=== PATIENT | male | born 1960 ===

== ENCOUNTER 2021-02-04 13:41 | Inpatient (IN) | payer SELFPAY ==
[~2021-02-04 13:41] MED LIST: Iopamidol 370 76% 100 ML VIAL ONE; Iopamidol 370 76% 50 ML VIAL FS ONE
[2021-02-04] MEDS ORDERED: Morphine 4 MG/ML VIAL ONE (13:45)
[2021-02-04] MEDS ORDERED: Ondansetron PF 4 MG/2 ML Vial ONE (13:45)
[2021-02-04 14:02] LABS: #Basophils 0.1 thou/uL (0.0-0.2); #Eosinphils 0.3 thou/uL (0.0-0.7); #Lymphocytes 2.1 thou/uL (1.20-3.40); #Neutrophils 10.8 thou/uL (1.40-6.50); %Basophils 0.9 % (0.0-1.0); %Eosinophils 2.4 % (0.0-10.0); %Lymphocytes 14.8 % (21.0-51.0); Hemoglobin 14.6 g/dL (14.0-18.0); Mean Corpuscular HGB CONC 35.4 g/dL (32.0-36.0); Mean Corpuscular Hemoglobin 34.1 pg (27.0-31.0); Mean Corpuscular Volume 96.2 fL (78.0-98.0); Platelet Count 330 thou/uL (130-400); RBC Distribution Width 11.8 % (11.5-14.5); Red Blood Cell (RBC) Count 4.27 mill/uL (4.70-6.10); White Blood Cell (WBC) Count 14.4 thou/uL (4.8-10.8)
[2021-02-04] MEDS ORDERED: Atropine Sulfate 1 mg/10 ml Syringe ONE (14:07)
[2021-02-04] MEDS ORDERED: Midazolam HCl 2 mg/2 ml Vial ONE (14:07)
[2021-02-04 14:19] LABS: PTT 32.2 sec (22.9-36.1)
[2021-02-04] MEDS ORDERED: Morphine 2 MG/ML VIAL ONE (14:19)
[2021-02-04] MEDS ORDERED: TICAGRELOR 90 MG TABLET ONE (14:27)
[2021-02-04 14:32] LABS: ALT (SGPT) 17 U/L (8-55); AST (SGOT) 20 U/L (5-34); Albumin 4.5 g/dL (3.5-5.0); Alkaline Phosphatase 55 U/L (40-110); Anion Gap 14 mmol/L (10-20); BUN (Urea Nitrogen) 20 mg/dL (8.4-25.7); Bilirubin, Total 0.8 mg/dL (0.2-1.2); Calc. Creatinine Clearance 0 mL/min (70-130); Calcium 10.1 mg/dL (7.8-10.44); Carbon Dioxide 23 mmol/L (22-29); Chloride 105 mmol/L (98-107); Globulin 2.8 g/dL (2.4-3.5); Glucose 100 mg/dL (70-105); Potassium 3.5 mmol/L (3.5-5.1); Protein, Total 7.3 g/dL (6.0-8.3); Sodium 138 mmol/L (136-145)
[2021-02-04] MEDS ORDERED: Nitroglycerin 0.4 MG TAB (25 Tab Bottle) SL PRN ×2 (15:07→15:11)
[2021-02-04] MEDS ORDERED: Morphine 2 MG/ML VIAL SLOW IVP PRN (15:07)
[2021-02-04] MEDS ORDERED: Heparin 25,000 units/D5W 500 ML IVPB SCH (15:15)
[2021-02-04] MEDS ORDERED: Heparin 10,000 UNITS/ 10 ML VIAL SLOW IVP SCH (15:15)
[2021-02-04] MEDS ORDERED: Aspirin Chewable 81 MG TAB PO SCH (15:15)
[2021-02-04] MEDS ORDERED: Sodium Chloride 0.9% 1,000 ML IV SCH (15:15)
[2021-02-04 16:00] LABS: Hemoglobin 13.4 g/dL (14.0-18.0); Platelet Count 264 thou/uL (130-400)
[2021-02-04 16:29] LABS: PTT Greater than 250.0 sec (22.9-36.1)
[2021-02-04 16:53] LABS: Troponin I 35.619 ng/mL (< 0.028)
[2021-02-04] MEDS ORDERED: Milk Of Magnesia 30 ML UDCUP PO PRN (19:15)
[2021-02-04] MEDS ORDERED: Acetaminophen/Codeine 30-300mg Tablet PO PRN ×2 (19:15)
[2021-02-04] MEDS ORDERED: Zolpidem Tartrate 5 MG TAB PO PRN (19:16)
[2021-02-04 19:32] LABS: Troponin I 101.085 ng/mL (< 0.028)
[2021-02-04] MEDS: Metoprolol Tartrate 25 MG TAB PO SCH (21:52)
[2021-02-04] MEDS: Carvedilol 3.125 MG TAB PO SCH (21:52)
[2021-02-04] MEDS: TICAGRELOR 90 MG TABLET PO SCH (21:52)
[2021-02-04] MEDS: Atorvastatin Calcium 40 MG TAB PO SCH (21:52)
[2021-02-04] MEDS ORDERED: Acetaminophen 500 MG TAB ONE (23:37)
[2021-02-05 06:38] LABS: #Basophils 0.1 thou/uL (0.0-0.2); #Eosinphils 0.3 thou/uL (0.0-0.7); #Lymphocytes 1.4 thou/uL (1.20-3.40); #Monocytes 0.7 thou/uL (0.11-0.59); #Neutrophils 6.5 thou/uL (1.40-6.50); %Basophils 0.6 % (0.0-1.0); %Eosinophils 2.8 % (0.0-10.0); %Lymphocytes 15.6 % (21.0-51.0); %Monocytes 8.1 % (0.0-10.0); %Neutrophils 72.9 % (42.0-75.0); Mean Corpuscular HGB CONC 34.9 g/dL (32.0-36.0); Mean Corpuscular Hemoglobin 33.8 pg (27.0-31.0); Mean Platelet Volume 7.5 fL (7.4-10.4); Platelet Count 245 thou/uL (130-400); RBC Distribution Width 11.9 % (11.5-14.5); Red Blood Cell (RBC) Count 3.86 mill/uL (4.70-6.10); White Blood Cell (WBC) Count 8.9 thou/uL (4.8-10.8)
[2021-02-05 06:58] LABS: ALT (SGPT) 40 U/L (8-55); AST (SGOT) 159 U/L (5-34); Albumin 3.6 g/dL (3.5-5.0); Alkaline Phosphatase 48 U/L (40-110); Anion Gap 14 mmol/L (10-20); BUN (Urea Nitrogen) 19 mg/dL (8.4-25.7); Bilirubin, Total 1.4 mg/dL (0.2-1.2); Calc. Creatinine Clearance 0 mL/min (70-130); Calcium 9.2 mg/dL (7.8-10.44); Carbon Dioxide 19 mmol/L (22-29); Cardiac Risk 2.1 (Less than 4.5); Chloride 106 mmol/L (98-107); Cholesterol 121 mg/dl (< 200 Desired); Globulin 2.6 g/dL (2.4-3.5); Glucose 101 mg/dL (70-105); HDL Cholesterol 59 mg/dL (>60 Neg Risk); LDL Cholesterol, Calculated 49 mg/dL; Potassium 4.3 mmol/L (3.5-5.1); Protein, Total 6.2 g/dL (6.0-8.3); Sodium 135 mmol/L (136-145); Triglycerides 67 mg/dL (Less than 150)
[2021-02-05] MEDS: Metoprolol Tartrate 25 MG TAB PO SCH ×2 (08:30→19:53)
[2021-02-05] MEDS: Aspirin Chewable 81 MG TAB PO SCH (08:30)
[2021-02-05] MEDS: Carvedilol 3.125 MG TAB PO SCH (08:30)
[2021-02-05] MEDS: TICAGRELOR 90 MG TABLET PO SCH ×2 (08:30→19:53)
[2021-02-05] MEDS: Lisinopril 2.5 MG TAB PO SCH (08:30)
[2021-02-05] MEDS ORDERED: Carvedilol 3.125 MG TAB ONE (08:34)
[2021-02-05] MEDS ORDERED: Aspirin Chewable 81 MG TAB ONE (08:34)
[2021-02-05] MEDS ORDERED: Lisinopril 2.5 MG TAB ONE (08:34)
[2021-02-05] MEDS ORDERED: Sodium Chloride 0.9% 10 ML ONE (08:49)
[2021-02-05] MEDS ORDERED: Albuterol Sulfate 2.5 mg/3 ml Neb NEB PRN (09:31)
[2021-02-05 10:22] LABS: Critical Call Chem Troponin I RESULT DECREASING
[2021-02-05 12:13] VITALS: BMI 20.7
[2021-02-05] MEDS: Atorvastatin Calcium 40 MG TAB PO SCH (19:53)
[2021-02-06] MEDS: Metoprolol Tartrate 25 MG TAB PO SCH ×2 (08:12→22:01)
[2021-02-06] MEDS: TICAGRELOR 90 MG TABLET PO SCH ×2 (08:12→22:01)
[2021-02-06] MEDS: Lisinopril 2.5 MG TAB PO SCH (08:12)
[2021-02-06] MEDS: Aspirin Chewable 81 MG TAB PO SCH (08:12)
[2021-02-06 15:18] LABS: Platelet Count 237 thou/uL (130-400)
[2021-02-06] MEDS: Atorvastatin Calcium 40 MG TAB PO SCH (22:03)
[2021-02-07] MEDS: Aspirin Chewable 81 MG TAB PO SCH (08:21)
[2021-02-07] MEDS: Metoprolol Tartrate 25 MG TAB PO SCH (08:21)
[2021-02-07] MEDS: Lisinopril 2.5 MG TAB PO SCH (08:21)
[2021-02-07] MEDS: TICAGRELOR 90 MG TABLET PO SCH (08:21)
[2021-02-07 12:05] VITALS: TEMP 98.1
[2021-02-07 12:07] VITALS: BP 133/81
== END 2021-02-07 12:01 | disposition home or self-care (01) | DRG 247 ==
LOC: ERS 13:41 → 2NO 13:48 → CCL 13:48 → PACU-TCU 16:00 → 2NO 02-05 12:10
PROVIDERS: ADMIT Internal Medicine Cardiovascular Disease; ATTEND Internal Medicine Cardiovascular Disease
PROC: 027035Z Dilation of Coronary Artery, One Artery with Two Drug-eluting Intraluminal Devices, Percutaneous Approach (ICD-10-PCS; principal; 2021-02-04)
PROC: 4A023N7 Measurement of Cardiac Sampling and Pressure, Left Heart, Percutaneous Approach (ICD-10-PCS; 2021-02-04)
PROC: B2111ZZ Fluoroscopy of Multiple Coronary Arteries using Low Osmolar Contrast (ICD-10-PCS; 2021-02-04)
DX: I21.09 ST elevation (STEMI) myocardial infarction involving other coronary artery of anterior wall (principal); I47.2 Ventricular tachycardia; I10 Essential (primary) hypertension; E78.5 Hyperlipidemia, unspecified; I08.2 Rheumatic disorders of both aortic and tricuspid valves; I25.2 Old myocardial infarction
CPT/HCPCS: 36415; 80053; 80061; 84484; 85014; 85018; 85025; 85049; 85347; 85610; 85730; 92928; 92941; 93005; 93010; 93306; 93458; 93798; 94760; 96374; 96375; 97139; 99152; 99153; C9600; C9606; J0461; J2250; J2270; J2405; J7050; Q9967